=== PATIENT | male | born 1950 | race Caucasian/White ===

== ENCOUNTER 2017-12-02 15:51 | Outpatient (RCR) | payer OTHER ==
[~2017-12-02 15:51] MED LIST: BEN20 PO; BENA20TA8 PO; BENZAPRIL; BICA50TA36 PO; CIPR-215 PO; DEN60I SUBQ; HYDR12.561 PO; LOR5 PO; LORA10CA3 PO; MULT-1335 PO; OMEP1CAP27 PO; PER PO; SIMV-42 PO; TAMS0.4C25 PO
--- NOTE | 2017-12-03 11:52 | Oncology Note ---
Patient was called with results of the urine sample. They were completely unremarkable. Patient indicated that his symptoms have improved and he is thought to have passed a kidney stone. 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 He will call the clinic if he is having recurrent problems. MARYA ARCHER [employer], ONC Dec 03, 2017 11:52
== END 2017-12-24 09:55 | disposition home or self-care (01) ==
LOC: RAON 15:51
PROVIDERS: ATTEND Nurse Practitioner Family
DX: C61 Malignant neoplasm of prostate (principal); K21.9 Gastro-esophageal reflux disease without esophagitis; E78.00 Pure hypercholesterolemia, unspecified; I10 Essential (primary) hypertension; Z92.3 Personal history of irradiation; Z79.899 Other long term (current) drug therapy
CPT/HCPCS: 81001

== ENCOUNTER 2018-03-31 15:55 | Outpatient (RCR) | payer OTHER ==
[~2018-03-31 15:55] MED LIST changes: +CALC1TAB32 PO; +CHOL10005 PO; +PNEU0.5D3 IM; +SIMV10TA98 PO
[2018-04-01] MEDS ORDERED: LEUP11.26 IM (13:17)
== END 2018-04-14 09:47 | disposition home or self-care (01) ==
LOC: RAON 15:55
PROVIDERS: ATTEND Radiology Radiation Oncology
DX: C61 Malignant neoplasm of prostate (principal); K21.9 Gastro-esophageal reflux disease without esophagitis; E78.00 Pure hypercholesterolemia, unspecified; I10 Essential (primary) hypertension; Z92.3 Personal history of irradiation; Z79.899 Other long term (current) drug therapy
CPT/HCPCS: 99212

== ENCOUNTER 2018-09-30 18:54 | Emergency (ER) | payer OTHER ==
[~2018-09-30 18:54] MED LIST changes: +BENA20TA64 PO; -BENA20TA8 PO; -BICA50TA36 PO; +BICA50TA41 PO; +LEUP11.26 IM
[2018-09-30 19:00] VITALS: BP 180/99
--- NOTE | 2018-09-30 19:03 | ER Report ---
History and Physical Time Seen By MD: 18:59 HPI/ROS CHIEF COMPLAINT: Flashing and right lateral eye HISTORY OF PRESENT ILLNESS: 68-year-old male with a history of hypertension on medication. No diabetes presents ambulatory to the ER complaining of onset of flashing while walking his dog around 5 PM. He notes flashing spots over in the right lateral aspect of his vision. Patient's had no previous vision problems. 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 She denies eye trauma or eye pain. He's had no mattering or discharge. He's had no tearing. REVIEW OF SYSTEMS: Respiratory: No cough, no dyspnea. Cardiovascular: No chest pain, no palpitations. Gastrointestinal: No vomiting, no abdominal pain. Musculoskeletal: No back pain. Allergies: Coded Allergies: No Known Drug Allergies (Unverified , 09/30/18) Home Meds Active Scripts Benazepril Hcl (BENAZEPRIL HCL) 20 Mg Tab, 1 TAB PO QDAY, #90 TAB 2 Refills Prov:AMANDA MURRAY MD 04/20/18 Simvastatin (SIMVASTATIN) 10 Mg Tablet, 10 MG PO HS, #90 TAB 3 Refills Prov:AMANDA MURRAY MD 03/11/18 Tamsulosin Hcl (FLOMAX) 0.4 Mg Cap.er.24h, 0.4 MG PO QDAY for 30 Days, #60 CAP 6 Refills Prov:AMANDA MURRAY MD 03/11/18 Bicalutamide (BICALUTAMIDE) 50 Mg Tablet, 1 TAB PO QDAY, #60 TAB Prov:ANAIS CORBETT MD 09/08/17 Reported Medications Leuprolide Acet 11.25 Mg [id number] (LUPRON DEPOT 11.25 MG [id number]) 11.25 Mg Syringekit, 45 MG IM DIRECTED, SYR EVERY 3 MONTHS 04/01/18 Cholecalciferol (Vitamin D3) (VITAMIN D3) Unknown Strength Tablet, PO, TAB 03/11/18 Calcium Carb & Cit/Vitamin D3 (CALCIUM + D3 ER TABLET) Unknown Strength Tablet.er, PO DAILY 03/11/18 Multivitamin With Minerals (MULTIPLE VITAMIN) 1 Each Tablet, 1 EACH PO DAILY 09/24/13 Discontinued Scripts Denosumab (PROLIA) 60 Mg/1 Ml Injs, 60 MG SUBQ [id number], #3 SYR Prov:ANAIS CORBETT MD 09/09/17 Reviewed Nurses Notes: Yes Old Medical Records Reviewed: Yes Smoking Status: Never Smoker Hx Substance Use Disorder: No Hx Alcohol Use: No Constitutional Vital Sign - Last 24 Hours 09/30/18 09/30/18 09/30/18 19:00 19:00 19:09 Temp 97.8 Pulse 80 75 Resp 14 B/P (MAP) 180/99 (126) 180/99 Pulse Ox 94 91 O2 Delivery Room Air Physical Exam Vital signs stable, afebrile, pulse ox normal, visual acuity noted General Appearance: The patient is alert, has no immediate need for airway protection and no current signs of toxicity. Eyes: Pupils equal and round no injection., Small pupils 2-3 mm. Reactive to light. Funduscopic examination is unremarkable on the right. Respiratory: Chest is non tender, lungs are clear to auscultation. Cardiac: regular rate and rhythm Musculoskeletal: Neck: Neck is supple and non tender. No lymphadenopathy Extremities have full range of motion and are non tender. Skin: No rashes or lesions. DIFFERENTIAL DIAGNOSIS: After history and physical exam differential diagnosis was considered for visual changes, scotoma, detached retina, Medical Decision Making ED Course/Re-evaluation ED Course Patient was admitted to an examination room. H&P was done. The differential diagnoses was considered. Patient with flashing in his right lateral vision. Patient notes that when he was outside in the right sunlight. When he is indoors. He doesn't notice it. On driving down here. He noticed it again. Sitting here in the emergency department. He's had no flashing in his vision is returned to normal. His visual acuities unremarkable. Patient had no headache. No eye pain, no visual changes. Patient does have a history of hypertension, no diabetes. On conical examination. The fundus appears normal. Lap was briefly performed and no abnormality was noted. Patient's reassured that is unlikely anything serious and follow-up with ophthalmology for further evaluation if continues to occur. He is given information for Dr. Xavi Henry. 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
== END 2018-09-30 19:35 | disposition home or self-care (01) ==
LOC: ER 19:18
DX: H53.8 Other visual disturbances (principal); I10 Essential (primary) hypertension
CPT/HCPCS: 99282

== ENCOUNTER 2018-10-06 11:58 | Outpatient (RCR) | payer OTHER ==
[2018-10-06 12:00] VITALS: BP 135/88
[2018-10-06] MEDS ORDERED: INFLUENZA VIRUS VAC 0.5ML SYR IM ONLY ONE (12:45)
== END 2018-10-30 15:32 | disposition home or self-care (01) ==
LOC: RAON 11:58
PROVIDERS: ATTEND Radiology Radiation Oncology
DX: C61 Malignant neoplasm of prostate (principal); Z92.3 Personal history of irradiation; Z23 Encounter for immunization
CPT/HCPCS: 90471; 90674; 99212